=== PATIENT | female | born 1985 | race Caucasian/White ===

== ENCOUNTER 2018-05-11 03:51 | Emergency (ER) | payer MEDICAID ==
[2018-05-11] MEDS ORDERED: HYOSCYAMINE SULFATE ODT 0.125 MG TAB.SUBL SL ONE (04:07)
--- NOTE | 2018-05-11 04:12 | Emergency Department Record ---
History of Present Illness - General Chief complaint: Nausea, Vomiting, Diarrhea Stated complaint: DIARRHEA/NAUSEA Time Seen by Provider: 05/11/18 04:06 Source: Patient Mode of Arrival: Ambulatory Limitations: No limitations - History of Present Illness Initial comments: 32 yo female presents to ED for evaluation of loose stools and nausea symptoms for the past 2 days. Patient reports similar symptoms with her daughters however their symptoms have resolved. Patient denies fevers, chills, urinary symptoms. Patient does reports that her children ate some possible recalled crackers. Patient denies health problems at her baseline. MD complaint: Abdominal pain, Diarrhea, Nausea Onset/Timin -: Days(s) Description of Vomiting: Watery Associated Abdominal Pain: Yes Location: LUQ Radiation: None Severity: Moderate Quality: Cramping Consistency: Constant Improves with: None Worsens with: None Context: Possible food poisoning, Sick contacts Associated Symptoms: Nausea/vomiting, Other - Related Data Previous Rx's Medication Instructions Recorded Hyoscyamine Sulfate [Levsin-Sl] 0.25 mg SL Q8H PRN #20 tab.subl 05/11/18 Allergies Allergy/AdvReac Type Severity Reaction Status Date / Time Pertussis Vaccines Allergy HIVES Verified 05/11/18 04:00 Travel Screening - Travel/Exposure Within Last 30 Days Have you traveled within the last 30 days?: No - Travel/Exposure Within Last Year Have you traveled outside the [place] in the last year?: No - Additonal Travel Details Have you been exposed to anyone with a communicable illness?: No - Travel Symptoms Symptom Screening: None Review of Systems Constitutional: Denies: Chills, Fever, Malaise, Night sweats Eyes: Denies: Eye discharge, Eye pain ENT: Denies: Congestion, Ear pain, Epistaxis Respiratory: Denies: Cough, Dyspnea Cardiovascular: Denies: Chest pain, Dyspnea on exertion Endocrine: Denies: Fatigue, Heat or cold intolerance Gastrointestinal: Reports: Abdominal pain, Diarrhea, Nausea. Denies: Constipation, Vomiting Genitourinary: Denies: Incontinence, Retention Musculoskeletal: Denies: Arthralgia, Back pain, Gout, Joint swelling Skin: Denies: Bruising, Change in color Neurological: Denies: Abnormal gait, Confusion, Headache, Seizure Psychiatric: Denies: Anxiety Hematological/Lymphatic: Denies: Anemia, Blood Clots Past Medical History - SOCIAL HISTORY Smoking Status: Never smoker Alcohol Use: None Drug Use: None - RESPIRATORY Hx Respiratory Disorders: No - CARDIOVASCULAR Hx Cardio Disorders: No - NEURO Hx Neuro Disorders: No - GI Hx GI Disorders: No - Hx Genitourinary Disorders: No - ENDOCRINE Hx Endocrine Disorders: No - MUSCULOSKELETAL Hx Musculoskeletal Disorders: No - PSYCH Hx Psych Problems: No - HEMATOLOGY/ONCOLOGY Hx Hematology/Oncology Disorders: No Family Medical History Any Significant Family History?: No Physical Exam - General General Appearance: Alert, Oriented x3, Cooperative, Mild distress Limitations: No limitations - Head Head exam: Atraumatic, Normocephalic, Normal inspection Head exam detail: negative: Abrasion, Contusion, Choe's sign, General tenderness, Hematoma, Laceration - Eye Eye exam: Normal appearance. negative: Conjunctival injection, Periorbital swelling, Periorbital tenderness, Scleral icterus - ENT Ear exam: negative: Auricular hematoma, Auricular trauma Nasal Exam: negative: Active bleeding, Discharge, Dried blood, Foreign body Mouth exam: negative: Drooling, Laceration, Muffled voice, Tongue elevation - Neck Neck exam: Normal inspection. negative: Meningismus, Tenderness - Respiratory Respiratory exam: Normal lung sounds bilaterally. negative: Rales, Respiratory distress, Rhonchi, Stridor - Cardiovascular Cardiovascular Exam: Regular rate, Normal rhythm, Normal heart sounds - GI/Abdominal GI/Abdominal exam: Soft, Tenderness (Mild TTP LUQ on examination, no rebound or guarding present). negative: Rebound, Rigid - Rectal Rectal exam: Deferred - exam: Deferred - Extremities Extremities exam: Normal inspection. negative: Calf tenderness, Pedal edema, Tenderness - Back Back exam: Denies: CVA tenderness (R), CVA tenderness (L) - Neurological Neurological exam: Alert, Normal gait, Oriented X3 - Psychiatric Psychiatric exam: Normal affect, Normal mood - Skin Skin exam: Normal color. negative: Abrasion Type of lesion: negative: abrasion Course Vital Signs 05/11/18 03:54 Temperature 98.2 F Pulse Rate 85 Respiratory 20 Rate Blood Pressure 129/87 Pulse Ox 98 - Reevaluation(s) Reevaluation #1: 05/11/18 05:00 Labs reviewed and are grossly unremarkable for an acute process. Reevaluation #2: 05/11/18 06:05 Patient reassessed, has not had any further episodes of loose stools in ED. Will discharge home with stool container and Levsin for her cramping symptoms which have improved as well with instructions for close follow-up with her PCP in 1-3 days. Medical Decision Making - Lab Data Result diagrams: 05/11/18 04:15 05/11/18 04:15 Disposition Disposition: Discharge Clinical Impression: Diarrhea Qualifiers: Diarrhea type: unspecified type Qualified Code(s): R19.7 - Diarrhea, unspecified Disposition: Home, Self-Care Condition: (2) Stable Instructions: Acute Diarrhea (ED) Additional Instructions: Return to ED if your symptoms worsen or if you have any concerns. Levsin as directed. Follow-up with your family doctor in 3-5 days as directed. Prescriptions: Hyoscyamine Sulfate [Levsin-Sl] 0.25 mg SL Q8H PRN #20 tab.subl PRN Reason: Abdominal Pain Forms: Patient Portal Access Time of Disposition: 06:07 Quality - Quality Measures Quality Measures: N/A - Blood Pressure Screening Does Patient Have Any of the Following: No Blood Pressure Classification: Pre-Hypertensive BP Reading Systolic Measurement: 129 Diastolic Measurement: 87 Screening for High Blood Pressure: < Pre-Hypertensive BP, F/U Documented > [ [id number]] Pre-Hypertensive Follow-up Interventions: Referral to alternative/primary care provider.
[2018-05-11] MEDS ORDERED: 0.9 % SODIUM CHLORIDE 1000ML 1,000 ML IV SCH (04:15)
[2018-05-11 04:23] LABS: HEMATOCRIT 41.6 % (35.0-47.0); HEMOGLOBIN 14.2 gm/dl (11.6-16.0); MEAN CELL VOLUME 86.8 fl (81-97); MEAN CORPUSCULAR HEMOGLOBIN 29.6 pg (27-33); MEAN CORPUSCULAR HGB CONC 34.1 g/dl (32-36); MEAN PLATELET VOLUME 11.2 fl (7.4-10.4); PLATELET COUNT 170 K/uL (130-400); RED BLOOD COUNT 4.79 M/uL (3.80-5.40); RED CELL DISTRIBUTION WIDTH 12.7 % (11.5-14.5); WHITE BLOOD COUNT W/O DIFF 6.3 K/uL (4.2-12.2)
[2018-05-11 04:24] LABS: BASO % 0.3 % (0-6); EOS % 2.1 % (0-6); GRAN % 75.2 % (47-80); LYMPH % 12.6 % (16-45); MONO % 9.8 % (0-9)
[2018-05-11 04:46] LABS: BLOOD UREA NITROGEN 13 mg/dL (6-20); CREATININE 0.7 mg/dL (0.5-0.9); EST GLOMERULAR FILTRATION RATE > 60 mL/min
[2018-05-11 04:47] LABS: TOTAL PROTEIN 7.6 g/dL (6.6-8.7)
[2018-05-11 04:49] LABS: GLUCOSE,RANDOM 104 mg/dL (74-109)
[2018-05-11 04:51] LABS: ALB/GLOB RATIO 1.6 (1.1-1.8); ALBUMIN 4.7 g/dL (4.0-5.0); ALKALINE PHOSPHATASE 59 U/L (35-104); ALT/SGPT 13 U/L (<33); AST/SGOT 15 U/L (10.0-35.0)
[2018-05-11] MEDS ORDERED: LOPERAMIDE 2 MG CAPSULE PO ONE (05:19)
== END 2018-05-11 06:21 | disposition home or self-care (01) ==
LOC: ER 03:51
DX: R19.7 Diarrhea, unspecified (principal); R11.2 Nausea with vomiting, unspecified; R10.12 Left upper quadrant pain
CPT/HCPCS: 80053; 85025; 96360; 99284; J7030